=== PATIENT | male | born 1960 | race Caucasian/White ===

== ENCOUNTER 2018-05-17 00:44 | Emergency (ER) | payer OTHER ==
[~2018-05-17] VITALS: Ht 170.2 cm; Wt 86.2 kg
[2018-05-17] MEDS ORDERED: METOCLOPRAMIDE10 MG PO (09:14)
[2018-05-17] MEDS ORDERED: MAALOX MAXIMUM355 ML PO (09:14)
== END 2018-05-17 09:32 | disposition home or self-care (01) ==
LOC: ER 00:44
DX: E04.8 Other specified nontoxic goiter (principal); R13.19 Other dysphagia; J39.8 Other specified diseases of upper respiratory tract